=== PATIENT | female | born 1995 | race Caucasian/White ===

== ENCOUNTER 2016-05-09 17:02 | Emergency (ER) | payer OTHER ==
[2016-05-09] MEDS ORDERED: VENTOLIN HFA INH ONE (19:49)
[2016-05-09] MEDS ORDERED: TESSALON PO ONE (19:49)
[2016-05-09] MEDS ORDERED: ZITHROMAX PO ONE (19:49)
--- NOTE | 2016-05-09 19:50 | PROVIDER DOCUMENTATION ---
HPI-Respiratory General - General Chief Complaint: Cough Stated Complaint: COUGHING UP BLOOD Time Seen by Provider: 05/09/16 19:37 Source: patient Allergies/Adverse Reactions: Patient Allergies Allergy/AdvReac Type Severity Reaction Status Date / Time No Known Allergies Allergy Verified 05/09/16 20:54 - History of Present Illness-Resp Nature of Presenting Problem: 21 year old WF presents with c/o cough for 2 days with blood streaked tinged sputum. pt reports she has been coughing up white sputum with streaks of blood in it. pt denies chest pain, shortness of breath, difficulty breathing. she does report intermittent wheezing with the cold air. denies chest pain/pressure. Quality of Pain: reports: none Review of Systems - Adult - REVIEW OF SYSTEMS - ADULT Constitutional: reports: no symptoms reported. denies: chills, fatique, night sweats, weight gain, weight loss Eyes: reports: no symptoms reported. denies: discharge, blurred vision, double vision Ears, Nose, Mouth & Throat: reports: no symptoms reported. denies: ear discharge, ear pain, nose pain, loose teeth, throat pain, throat swelling Cardiovascular: reports: no symptoms reported. denies: chest pain, heart murmur , irregular heart rate, orthopnea, palpitations, poor circulation, syncope Respiratory: reports: see HPI, hemoptysis, wheezing. denies: chronic cough, cough, shortness of breath Gastrointestinal: reports: no symptoms reported. denies: abdominal pain, diarrhea, nausea, vomiting Genitourinary: reports: no symptoms reported. denies: dysuria, hematuria, urgency Musculoskeletal: reports: no symptoms reported. denies: bone pain, joint pain, joint swelling, neck pain Integumentary: reports: no symptoms reported. denies: hives, rash, skin thickening Neurological: reports: no symptoms reported. denies: ataxia, dizziness/vertigo , numbness, paresthesia Psychiatric: reports: no symptoms reported Endocrine: reports: no symptoms reported Hematologic/Lymphatic: reports: no symptoms reported Allergic/Immunologic: reports: no symptoms reported All Other Systems: Reviewed and Negative Past History - Adult - PAST MEDICAL HISTORY-ADULT Review of Records: reports: Old Records Reviewed, Nursing Assessment Review, Medications Reviewed, Social history reviewed & non-contributory. Major Childhood Illnesses: reports: denies history Cardiovascular: reports: denies history Respiratory: reports: denies history Gastrointestinal: reports: denies history Obstetrical/Gynecological: reports: denies history Genitourinary: reports: denies history Musculoskeletal: reports: denies history Neurological: reports: denies history Endocrine/Immune: reports: denies history Other Conditions: reports: denies history - FAMILY HISTORY Family History: reviewed, not pertinent - SOCIAL HISTORY Smoking: denies, non-smoker Substance Use: none/never Alcohol Use Frequency: never Physical Exam-General - PHYSICAL EXAM-ADULT Initial Vital Signs Reviewed: Yes - CONSTITUTIONAL General Appearance: appears well, alert, no apparent distress - EYES Eyes: PERRL/EOMI, pink conjunctivae - HEAD, EARS, NOSE, MOUTH & THROAT HENMT: normocephalic/atraumatic, moist mucous membranes, normal ENT inspection - NECK Neck: non-tender, full range of motion, supple, normal inspection - RESPIRATORY Respiratory: chest non-tender, normal breath sounds, no pleuratic chest pain, no respiratory distress, no accessory muscle use, wheezing (mild). negative: lungs clear, respiratory distress, decreased breath sounds, accessory muscle use , crackles, rales, rhonchi, stridor - CARDIOVASCULAR Cardiovascular: normal peripheral pulses, regular rate, rhythm, no edema - GASTROINTESTINAL (ABDOMEN) Abdominal Exam: normal bowel sounds, non tender, soft - GENITOURINARY Female Genitalia/Pelvic Exam: deferred Rectal Exam: deferred Hemoccult Exam: deferred - LYMPHATIC Lymphatic: no adenopathy - MUSCULOSKELETAL Back Exam: normal inspection, no CVA tenderness, no vertebral tenderness Extremity: normal range of motion, non-tender, normal gait. negative: deformity , erythema Peripheral Pulses: radial (R): 3+, radial (L): 3+, dorsalis-pedis (R): 3+, dorsalis-pedis (L): 3+ - SKIN Integumentary: normal color, normal turgor, warm/dry - NEUROLOGIC Neurologic: grossly normal, no motor/sensory deficits - PSYCHIATRIC Psych/Mental Status: normal mood/affect, normal thought content, normal thought process, oriented x 3 Progress - PLAN OF CARE/RESULTS Progress/Plan/Lab Results: Orders Category Date Time Status CHEST-2 VIEWS [RAD] Stat Exams 05/09/16 18:06 Taken Albuterol Sulfate Inhaler [Ventolin Hfa] Med 05/09/16 19:49 Discontinued 2 puff INH NOW ONE Azithromycin [Zithromax] Med 05/09/16 19:49 Discontinued 500 mg PO NOW ONE Benzonatate [Tessalon] Med 05/09/16 19:49 Discontinued 100 mg PO NOW ONE MDI Treatments Stat Oth 05/09/16 19:50 Active Vital Signs - 24 hr 05/09/16 05/09/16 17:58 20:51 Temperature 97.7 F 98.2 F Pulse Rate 65 60 Respiratory 20 18 Rate Blood Pressure 122/76 114/74 O2 Sat by Pulse 100 100 Oximetry Departure - Departure Time of Disposition Order: 19:44 DIAGNOSIS: Bronchitis Disposition: HOME 01 Certified Medical Emergency: Emergent Condition: Stable Additional Instructions: ED Follow Up Instructions: You have been treated by a care provider in the Emergency Department. These instructions are being provided to you so you can have an understanding of how to care for yourself upon discharge. Upon discharge from the Emergency Department, you are responsible for making arrangements for follow-up care by a physician of your choice. Take all prescribed medications as directed. Return to the Emergency Department immediately for any new or worsening symptoms. You may call the Physician Referral phone number at [phone] to obtain a list of Physicians who are taking new patients. Prescriptions: Azithromycin 250 mg PO DAILY #4 tablet Benzonatate [Tessalon] 100 mg PO TID PRN PRN #20 capsule PRN Reason: Cough Referrals: Mikaela Porter MD [Primary Care Provider] - Forms: Return to School/Parent Work Instructions: Acute Bronchitis, [id number] Attestation - Physician/ Mid-level Attestation Patient care was provided by Mid-level provider (LENGTH CONTROL TESTER/PA):: Yes Mid-level provider:: Gerry Gardiner Mid-level documentation review:: The Mid-level provider documentation, treatment plan and medical decision making was reviewed by the physician who agrees with all treatment and medical decision making by the P.
[2016-05-09 20:52] VITALS: BP 114/74
--- NOTE | 2016-05-10 08:23 | Diag Imaging Result Document ---
PROCEDURE NAME: CHEST-2 VIEWS - 05/09/2016 CHEST X-RAY, 2 VIEWS: COMPARISON: None. FINDINGS: The lungs are normally expanded and clear. Heart size and mediastinal contours are normal. No pneumothorax or pleural effusion. IMPRESSION: Negative exam.
== END 2016-05-09 20:54 | disposition home or self-care (01) ==
LOC: ED 17:02
DX: J40 Bronchitis, not specified as acute or chronic (principal); R05 Cough; R04.2 Hemoptysis; R06.2 Wheezing
CPT/HCPCS: 71020; 99283

== ENCOUNTER 2018-12-03 15:01 | Observation (INO) ==
[2018-12-03] MEDS ORDERED: ZOFRAN IV PRN (16:00)
[2018-12-03 16:54] LABS: BASO# 0.04 X1000 (0.0-0.2); BASO% 0.6 % (0.0-0.8); EOS# 0.14 X1000 (0.0-0.7); EOS% 2.1 % (0.0-10.0); HEMATOCRIT 36.7 % (37.0-47.0); HEMOGLOBIN 12.2 g/dL (12.0-16.0); LYMPH% 33.5 % (20.5-51.1); MCH 28.3 PG (27-31); MCHC 33.2 g/dL (33-37); MCV 85.2 FL (81-99); MONO# 0.67 X1000 (0.11-0.59); MONO% 10.2 % (1.7-9.3); NEUT# 3.52 X1000 (1.4-6.5); NEUT% 53.6 % (42.2-75.2); PLT 194 X1000 (130-400); RBC 4.31 XMIL (4.2-5.4); WBC 6.57 X1000 (4.8-10.8)
[2018-12-03] MEDS: NS 1,000 ML IV SCH (17:33)
[2018-12-03 17:38] LABS: AGAP 7; ALB/GLOB RATIO 1.4; ALBUMIN 4.4 g/dL (3.5-5.0); ALKALINE PHOSPHATASE 73 U/L (32-104); AMYLASE 73 U/L (20-200); BUN 9 mg/dL (8-22); CALCIUM 9.1 mg/dL (8.8-10.2); CHLORIDE 104 mmol/L (98-107); COSMO 275; CREATININE 0.8 mg/dL (0.5-0.9); ESTIMATED GFR > 60; GLUCOSE 80 mg/dL (70-104); GOT 21 U/L (10-30); GPT 11 U/L (10-36); POTASSIUM 3.4 mmol/L (3.5-5.1); SODIUM 139 mmol/L (136-145); TCO2 28 mmol/L (25-35); TOTAL BILIRUBIN 0.15 mg/dL (0.20-1.00); TOTAL PROTEIN 7.5 g/dL (6.3-8.3)
[2018-12-03 17:46] LABS: UR AMPHETAMINES QUAL NONE DETECTED (NONE DETECT); UR BARBITUATES QUAL NONE DETECTED (NONE DETECT); UR BENZODIAZEPIN QUAL PRESUMPTIVE POSITIVE (NONE DETECT); UR CANNABINOIDS QUAL PRESUMPTIVE POSITIVE (NONE DETECT); UR COCAINE QUAL NONE DETECTED (NONE DETECT); UR METHADONE QUAL NONE DETECTED (NONE DETECT); UR OPIATES QUAL PRESUMPTIVE POSITIVE (NONE DETECT); UR OXYCODONE QUAL NONE DETECTED (NONE DETECT); UR PCP QUAL NONE DETECTED (NONE DETECT)
[2018-12-03] MEDS ORDERED: KLOR-CON PO ONE (19:11)
[2018-12-03] MEDS ORDERED: SODIUM CHLORIDE 0.9% INJ SCH (21:45)
--- NOTE | 2018-12-03 22:03 | HISTORY AND PHYSICAL ---
SUBJECTIVE: Complains of 4 days of nausea, vomiting, abdominal pain. HISTORY OF PRESENT ILLNESS: She is a 23-year-old white female who came to my office with a 4-day history of nausea, vomiting, abdominal pain. After questioning, she currently on her period. She is extremely dehydrated, dry, not able to hold anything down. She has been using marijuana. Most likely the symptoms are due to chronic cannabis syndrome. She had counseling done before but continues to use marijuana. PAST MEDICAL HISTORY: ADD, chronic cannabis abuse as well as cocaine, and reflux disease. PAST SURGICAL HISTORY: None. MEDICINES: Prilosec. ALLERGIES: Not known. SOCIAL HISTORY: Single buffet waiter/waitress. Lives in [place]. Has been smoking cigars along with marijuana since the age of 14. FAMILY HISTORY: Father is 60 years old with diabetes. Mom has hypertension. Currently on menstrual period. She is nulliparous. REVIEW OF SYSTEMS: HEENT: No headache, no vision problem. No earache. No sore throat. Neck: No goiter. No lymphadenopathy. No bruit. Cardiopulmonary: No chest pain, shortness of breath, PND, orthopnea. Gastrointestinal: Abdominal cramps, nausea, vomiting. : No history of hesitancy, frequency, dysuria. Musculoskeletal: No swelling of legs. No joint pain. Neurologic: No focal symptoms or weakness. PHYSICAL EXAMINATION: VITAL SIGNS: She has a low-grade fever of 99.3, pulse 54, blood pressure of 112/69. Height 5 feet 6 inches, weight 116 pounds. HEENT: Atraumatic, normocephalic. Pupils equal, react to light. TMs are normal. Nose and throat within normal limits. NECK: Supple. No lymphadenopathy. No goiter. CHEST: Bilateral air entry. CARDIOVASCULAR: Heart sounds are regular. No peripheral edema or cyanosis ABDOMEN: Belly is soft, nontender. Good bowel sounds. NEUROLOGIC: No obvious neurological deficits. INVESTIGATIONS: White cell count 6.5, hematocrit 36, platelets 194. SMA 7: Potassium 3.4. Amylase was normal. Urine toxicology positive for opiates, benzodiazepines and cannabinoids. ASSESSMENT: A 23-year-old white female basically admitted to the hospital with nausea, vomiting, and abdominal cramps, most likely chronic cannabis syndrome. PLAN: 1. IV fluids, IV Zofran, IV Nexium. 2. [facility] for detox. 3. Check a test. 4. If symptoms will not improve, we will also consider getting an ultrasound of the abdomen in the morning, and will slowly advance the diet as tolerated. cc: Alex Porter MD
[2018-12-03] MEDS: NEXIUM IV SCH (22:30)
[2018-12-04 06:42] LABS: BASO# 0.03 X1000 (0.0-0.2); BASO% 0.5 % (0.0-0.8); EOS# 0.14 X1000 (0.0-0.7); EOS% 2.5 % (0.0-10.0); HEMATOCRIT 31.8 % (37.0-47.0); HEMOGLOBIN 10.5 g/dL (12.0-16.0); LYMPH% 35.1 % (20.5-51.1); MCH 28.4 PG (27-31); MCV 85.9 FL (81-99); MONO# 0.68 X1000 (0.11-0.59); MONO% 11.9 % (1.7-9.3); MPV 11.8 FL (7.4-10.4); NEUT# 2.85 X1000 (1.4-6.5); PLT 179 X1000 (130-400)
[2018-12-04 07:20] LABS: AGAP 6; BUN 8 mg/dL (8-22); CALCIUM 8.4 mg/dL (8.8-10.2); CHLORIDE 111 mmol/L (98-107); COSMO 279; CREATININE 0.7 mg/dL (0.5-0.9); ESTIMATED GFR > 60; GLUCOSE 96 mg/dL (70-104); POTASSIUM 4.2 mmol/L (3.5-5.1); SODIUM 141 mmol/L (136-145); TCO2 24 mmol/L (25-35)
--- NOTE | 2018-12-04 08:40 | Diag Imaging Result Doc PS360 ---
US ABDOMEN-COMPLETE - 12/04/2018 INDICATION: Nausea and vomiting COMPARISON: None FINDINGS: The liver, gallbladder, spleen, pancreas, and both kidneys are normal. Common bile duct measures 2 mm. Aorta, IVC, and main portal vein are patent. Spleen size is 9.9 x 10.1 x 4.5 cm. IMPRESSION: Negative exam. Electronically signed by Amos Zepeda 12/04/2018 8:38 AM
[2018-12-04] MEDS: NEXIUM IV SCH ×2 (09:47→22:38)
[2018-12-04] MEDS: NS 1,000 ML IV SCH ×2 (09:47→21:07)
[2018-12-04] MEDS ORDERED: NICODERM PATCH TD SCH (11:15)
--- NOTE | 2018-12-04 22:29 | PROGRESS NOTE ---
DATE: 12/04/2018 SUBJECTIVE: The patient's symptoms are improved. All her symptoms are probably due to chronic cannabis syndrome. She is also depressed. OBJECTIVE: Vital Signs: Temperature is 98. Vitals are stable. Physical exam shows no change. INVESTIGATIONS: test is negative. The patient had an ultrasound of the abdomen. CBC is normal. SMA 7: Amylase was normal. ASSESSMENT AND PLAN: 1. Nausea, vomiting, abdominal pain due to chronic cannabis syndrome. Continue on Nexium and Zofran. Advance the diet. 2. Substance abuse. Social service was consulted. They reported she will be beneficial for a [facility] consult, and after that she will be discharged based on their recommendations and followup. LEVEL OF DOCUMENTATION: 25 minutes. cc: Alex Porter MD
[2018-12-05] MEDS: NS 1,000 ML IV SCH (06:14)
[2018-12-05 07:56] VITALS: BP 109/60
--- NOTE | 2018-12-06 22:28 | DISCHARGE SUMMARY ---
ADMISSION DATE: 12/03/2018 DISCHARGE DATE: 12/05/2018 DISCHARGING DIAGNOSES: Abdominal pain, nausea, vomiting due to chronic cannabis syndrome. SECONDARY DIAGNOSES: 1. Dehydration. 2. Questionable bulimia disorder. 3. Attention deficit disorder. 4. Acid reflux disease. CONSULTS: [facility] and [facility]. BRIEF HISTORY: Please see the H P that was done on 12/03/2018. In brief, she is a 23-year-old, white female, admitted to the hospital with 4-day history of nausea, vomiting, abdominal pain, not able to eat. She also has poor dentition. The patient was given IV fluids, IV Nexium, and Zofran. Urine toxicology screen is positive for multiple drugs. She has been using off and on cannabis. I did explain that can cause the cyclical vomiting. [facility] consult was obtained for detox program. They also referred questionable bulimia history, referred to [facility]. They wanted follow up as an outpatient. test was negative. Ultrasound of the abdomen was negative. LABORATORY: White cell count 5.7, hematocrit 32, platelets 179,000. SMA-7 was normal. Serum was negative. Serum amylase was normal. Urine toxicology positive for opiates, benzodiazepines, and cannabinoids. DISCHARGE INSTRUCTIONS: Prilosec 20 mg daily and Zofran as needed for nausea, and detox program. Follow up in my office in 1 week. Follow up with outpatient detoxification programs. cc: Alex Porter MD
== END 2018-12-05 09:28 | disposition home or self-care (01) ==
LOC: INTOOBSV 15:01 → DIRADM 15:01 → 3N 15:34
PROVIDERS: ADMIT Internal Medicine; ATTEND Internal Medicine
CPT/HCPCS: 76700; 80048; 80053; 80101; 80301; 80307; 80324; 80345; 80346; 80353; 80358; 80361; 80365; 82150; 83735; 83992; 84703; 85025; A9270; G0431; G0434; G0479; G0480; J2405; J7030